=== PATIENT | male | born 2000 | race Hispanic/Latino ===

== ENCOUNTER 2021-04-02 11:35 | Emergency (ER) | payer MEDICAID, SELFPAY ==
[2021-04-02] MEDS ORDERED: Ondansetron PF 4 MG/2 ML Vial ONE ×3 (12:28→13:44)
[2021-04-02] MEDS ORDERED: Succinylcholine 200 MG/10 ml SYRINGE FS ONE (13:28)
[2021-04-02] MEDS ORDERED: Dexamethasone 10 MG/ML VIAL ONE (13:44)
== END 2021-04-02 14:20 | disposition home or self-care (01) ==
LOC: ERS 11:35
DX: U07.1 COVID-19 (principal); E86.0 Dehydration; R11.2 Nausea with vomiting, unspecified
CPT/HCPCS: 71045; 96374; 96375; 96376; J1100; J2405